=== PATIENT | female | born 1975 | race Caucasian/White ===

== ENCOUNTER → 2018-11-08 | Day surgery (SDC) | payer BC ==
[~2018-11-08] MED LIST: GLUCAGON FOR INJ 1 MG VIAL ONE; LIDOCAINE HCL 2% LOCAL INJ 5 ML SDV VIAL INJ ONE; MIDAZOLAM HCL 2 MG/2 ML VIAL ONE; MULTIVITAMINS1 EAC7 PO; PROPOFOL IV EMULSION 10 MG/ML 50 ML VIAL ONE; SIMETHICONE 40 MG/0.6 ML BTL ONE; VITAMIN B COMP1 EAC4 PO
--- OUTSIDE RECORDS SUMMARY | 2018-11-08 05:56 | XMS REPORT | Summary of Care ---
Author Author RAFAEL HUFFMAN M.D. 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 Unavailable Unavailable Unavailable Unavailable Functional Status Name Dates Details Functional status health issues are not documented Status: Name Dates Details Cognitive status health issues are not documented Status: Problems Name Dates Details Left knee pain (719.46, M25.562) Status: Active Acute medial meniscus tear of left knee, initial encounter (836.0, S83.242A) Status: Active Sprain of medial collateral ligament of left knee, initial encounter (844.1, S83.412A) Status: Active Medications Name Dates Details Duexis 800-26.6 MG Oral Tablet TAKE 1 TABLET 3 TIMES DAILY PRN Days: 30; Qty: 90 X Tablet; Refill: 2 Quantity: 90 RAFAEL HUFFMAN M.D. * Start : 10-Apr-2017 Active Allergies and Adverse Reactions Name Dates Details Sulfa Drugs (Allergy) Status: Active Past Medical History Name Dates Details History of Arthritis (716.90, M19.90) Status: Resolved History of Back pain (724.5, M54.9) Status: Resolved History of Depression (311, F32.9) Status: Resolved History of Hernia (553.9, K46.9) Status: Resolved Procedures Procedure Dates Details History of hernia repair Completed Immunization Name Dates Details Immunizations not documented Family History Name Dates Details Family history of hypercholesterolemia (V18.19, Z83.42) Status: Active Family history of cardiac disorder (V17.49, Z82.49) Status: Active Social History Name Dates Details - Status: Name Dates Details Never smoker Vital Signs Date Test Result Details No Known Vitals to report Results Date Description Value Details 10-Apr-20177:45 [U] XRAY KNEE 3 VWS LEFT 62456 XR KNEE 3 VWS LEFT Images acquired, not reported on this accession number. [id number] MR Knee wo contrast [id number] Knee wo contrast MR SEE NOTES Comments: EXAMINATION: MRI of the left knee without contrast.HISTORY: Left knee pain. Sprain of medial collateral ligament. This tear.; AGE: 41 yearsGENDER: FemaleCOMPARISON: There are no radiographs available for review.TECHNIQUE: Multiplanar, multisequence magnetic resonance imaging of the leftknee is performed with an extremity coil without contrast.FINDINGS:Menisci: Medial: The anterior horn, body, and posterior horn are intact.Lateral: Myxoid degeneration the anterior horn of the lateral meniscus withoutarticular surface contact to suggest tear.Ligaments: The anterior cruciate ligament and posterior cruciate ligament areintact. Mild edema superficial and deep to the medial collateral ligamentconsistent with mild grade 1 sprain. Lateral collateral ligament complex isintact and unremarkable.Extensor mechanism: The extensor mechanism is intact.Muscles: There is normal signal intensity and muscle bulk of the musculature atthe knee.Cartilage: There is no significant reactive marrow change. The patellofe moralarticular cartilage is intact.. The medial tibiofemoral articular cartilage isintact.. The lateral tibiofemoral articular cartilage is intact..Bone: There are no acute fractures. There are no suspicious bone marrowreplacing lesions.Soft tissues: There is no significant knee joint effusion. Small to moderateBaker's cyst.IMPRESSION:1. Mild edema superficial and deep to the medial collateral ligament suggestsmild grade 1 sprain..2. No MR evidence of medial meniscus tear.3. Small to moderate Lino's cyst.--Read by: Eduardo Moreno MDDictated Date/time: 04/30/17 11:46Electronically Signed by: Eduardo Moreno MD 04/30/1812:06FINAL REPORT Plan of Care Name Dates Details Planned Observations Planned Goals not documented Planned Encounters Appointment; RAFAEL HUFFMAN M.D. On: 22-May-2017 10:00 Instructions Name Dates Details Instructions not documented Encounters Appointment; RAFAEL HUFFMAN M.D. Encounter Diagnosis: Problem not documented On: 10-Apr-2017 7:30
--- OUTSIDE RECORDS SUMMARY | 2018-11-08 05:57 | XMS REPORT ---
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 Allergies, Adverse Reactions, Alerts Allergy Name Allergy Type Status Severity Reaction(s) Onset Date Inactive Date Treating Clinician Comments No Known Allergies DA Active U 2017-06-02 00:00:00 Medications This patient has no known medications. Results Test Description Test Time Test Comments Text Results Atomic Results Result Comments - CT ABDOMEN W/CONT 2018-05-31 10:32:00 Name: VANESSA HILARIO CHALINO [facility] : 1975 Age/S: 43 / F [address] [facility] Unit #: [id number] Loc: [place] [address] Phys: Arnulfo Oswald MD Acct: [id number] Dis Date: Status: REG CLI PHONE #: [phone] Exam Date: 05/31/2018 1012 FAX #: [phone] Reason: EPIGASTRIC PAIN EXAMS: CPT CODE: [id number] CT ABDOMEN W/CONT 34983 HISTORY: Epigastric pain. COMPARISON: None available. CT abdomen with IV and oral contrast: 100 mL of Isovue-370. Automated exposure control. CT ABDOMEN: The lung bases are clear. The liver is enhancing. No discrete mass with exception of 1.2 cm complex cystic lesion within the right lobe in segment 5 with average Hounsfield unit measurement of 19. No other lesions. The liver measured 16.8 cm in length. Portal vein is patent. Gallbladder is without radiopaque stones. Unremarkable spleen. The stomach is well distended with fluid. Thickened distal esophagus. Pancreas enhances homogeneously. Unremarkable adrenals. Kidneys are free from hydroureteronephrosis. Homogeneous enhancement. Bilateral excretion. No pathologic adenopathy. Well-opacified abdominal and pelvic vasculature. No bowel obstruction or colitis or diverticulitis or enteritis. Normal appendix. No free fluid or free air or abscess. Subcutaneous tissues and the musculature are normal in appearance. No lytic or blastic lesions are noted within skeleton. IMPRESSION: No hydroureteronephrosis with homogeneous enhancement. Normal appendix without bowel obstruction or colitis or diverticulitis or enteritis. No lytic and wall of the distal esophagus. No free fluid or free air or abscess. Complex cyst in the right lobe in segment 5 measuring 1.2 cm. No pathologic adenopathy. PAGE 1 Signed Report (CONTINUED) Name: VANESSA HILARIO [facility] : 1975 Age/S: 43 / F [address] [facility] Unit #: [id number] Loc: [place] [address] Phys: Arnulfo Oswald MD Acct: [id number] Dis Date: Status: REG CLI PHONE #: [phone] Exam Date: 05/31/2018 1012 FAX #: [phone] Reason: EPIGASTRIC PAIN EXAMS: CPT CODE: [id number] CT ABDOMEN W/CONT 09434 <Continued> at 1032 Reported and signed by: Rolo Bermeo M.D. CC: Tra Bennett DO; Arnulfo Oswald MD Technologist:Kar Esquivel RT(R),(MR),(CT); CTDI: DLP: Trnscb Date/Time: 05/31/2018 (1032) [email or web address] Orig Print D/T: S: 05/31/2018 (1035) CTDI: DLP: PAGE 2 Signed Report
[2018-11-08 08:30] VITALS: BP 116/62
--- NOTE | 2018-11-08 09:05 | Operative Report ---
DATE OF PROCEDURE: 11/08/2018 SURGEON: Aj Pollock MD PROCEDURE: EGD with biopsies. INDICATIONS FOR EGD: Heartburn, indigestion, and bloating. MEDICATIONS: The patient was done under MAC. Please see anesthesiologist's note. PROCEDURE IN DETAIL: With the patient in left lateral decubitus position, a flexible fiberoptic Olympus gastroscope was introduced into the esophagus under direct visualization without any difficulty. A minute submucosal nodule was noted in the distal esophagus that was biopsied. There was some patchy erythema noted in distal esophagus. The scope was then advanced with ease into the stomach traversing a small sliding hiatal hernia. Mucosa overlying the antrum revealed some patchy intense erythema, moderate edema, and some erosions. Biopsies were obtained and sent to stain for H pylori. The pylorus was of normal contour and shape, was intubated with ease and the scope was advanced all the way to the second portion of the duodenum. The scope was then withdrawn slowly and biopsies were obtained from the second portion and duodenal bulb to rule out sprue. The scope was then withdrawn back into the stomach and retroflexed mucosa overlying. The fundus and cardia appeared to be within normal limits. The scope was then straightened out. The stomach was decompressed. The scope was subsequently withdrawn. The patient tolerated the procedure well. IMPRESSION: 1. Submucosal nodule distal esophagus, biopsied. 2. Distal esophagitis, mild. 3. Small sliding hiatal hernia. 4. Gastritis, erosive, biopsied. Biopsies sent to stain for Helicobacter pylori. 5. Rule out sprue. PLAN: Follow up histology. Initiate Protonix 40 mg one p.o. q.a.m. and a.c. Aj Pollock MD [facility] [place][id number] cc: Tra Bennett DO
== END | disposition home or self-care (01) ==
LOC: OR 05:50
PROVIDERS: ATTEND Internal Medicine Gastroenterology
DX: K29.50 Unspecified chronic gastritis without bleeding (principal); K25.9 Gastric ulcer, unspecified as acute or chronic, without hemorrhage or perforation; K20.9 Esophagitis, unspecified; K22.8 Other specified diseases of esophagus; K44.9 Diaphragmatic hernia without obstruction or gangrene; K58.9 Irritable bowel syndrome, unspecified; R19.7 Diarrhea, unspecified; Z88.6 Allergy status to analgesic agent; Z88.2 Allergy status to sulfonamides; Z68.33 Body mass index [BMI] 33.0-33.9, adult
CPT/HCPCS: 43239; 81025; J1610; J2001; J2250; J2704